=== PATIENT | male | born 1955 | race Caucasian/White ===

== ENCOUNTER → 2017-11-27 | Outpatient (CLI) | END | disposition home or self-care (01) ==

== ENCOUNTER → 2019-08-05 | Outpatient (CLI) | payer MEDICARE, OTHER ==
[~2019-08-05] MED LIST: ASPI81EC PO; BALSALAZIDE 750 MG PO; CITA20 PO; DIPATR PO; FAMO10 PO; FISH1000 PO; INSLI100I SC; INSN100I SC; LOVA20 PO; METO50 PO; STOMUL PO; VICODIN ES PO; WARF5 PO
[2019-08-05 15:00] LABS: Creatinine, Urine Random 43.9 mg/dL (27.00-270.00); Protein, Urine Random 16.6 mg/dL (0.0-11.9)
[2019-08-05 15:14] LABS: Bilirubin, Urine Neg (Neg); Blood, Urine 1+ (Neg); Glucose Qualitative, Urine 4+ (Neg); Ketones, Urine Neg (Neg); Leukocyte Esterase, Urine Neg (Neg); Nitrite, Urine Neg (Neg); Protein, Urine Neg (Neg); Urobilinogen, Urine NORM (Normal)
[2019-08-05 15:23] LABS: Appearance, Urine Clear (Clear); Color, Urine Yellow (P-Yellow)
[2019-08-05 15:26] LABS: Bacteria Not Seen /hpf; Red Blood Cells, Urine Rare /hpf (0-2); Squamous Epithelial Cells Rare /hpf (Few); White Blood Cells, Urine Not Seen /hpf (0-5)
== END | disposition home or self-care (01) ==
LOC: LAB SHORT 12:46 → LAB 12:46
PROVIDERS: Internal Medicine
DX: N17.9 Acute kidney failure, unspecified (principal)
CPT/HCPCS: 81001; 82570; 84156

== ENCOUNTER 2020-12-20 09:28 | Emergency (ER) | payer MEDICARE, OTHER ==
[~2020-12-20] VITALS: Ht 170.2 cm; Wt 129.3 kg
[~2020-12-20 09:28] MED LIST changes: -ASPI81EC PO; +Aspir 8181 MG PO; +FISH OIL 1,2001 EAC4 PO; -FISH1000 PO; -INSLI100I SC; +IRON18 MG PO; +NOVOLIN R100 UNIT/2 SC; -STOMUL PO
[2020-12-20 10:32] LABS: BASOPHILS ABSOLUTE AUTO 0.03 K/mm3 (0.00-0.23); BASOPHILS PERCENT AUTO 0 % (0-2); EOSINOPHILS ABSOLUTE AUTO 0.14 K/mm3 (0.00-0.68); EOSINOPHILS PERCENT AUTO 1 % (0-6); Hematocrit 30.7 % (37.0-53.0); Hemoglobin 9.9 g/dL (13.5-17.5); IMMATURE GRAN ABSOLUTE AUTO 0.04 K/mm3 (0.00-0.10); IMMATURE GRAN PERCENT AUTO 0 % (0-1); LYMPHOCYTES ABSOLUTE AUTO 1.47 K/mm3 (0.84-5.20); LYMPHOCYTES PERCENT AUTO 13 % (21-46); MONOCYTES ABSOLUTE AUTO 0.73 K/mm3 (0.16-1.47); MONOCYTES PERCENT AUTO 7 % (4-13); Mean Corpuscular HGB 32.4 pg (26.0-34.0); Mean Corpuscular HGB Conc 32.2 g/dL (31.5-36.5); Mean Corpuscular Volume 100 fL (80-100); Mean Platelet Volume 8.4 fL (9.1-12.4); NEUTROPHILS ABSOLUTE AUTO 8.56 K/mm3 (1.96-9.15); NEUTROPHILS PERCENT AUTO 78 % (41-73); Platelet Count 390 K/mm3 (150-400); RDW Coefficient Variation 12.7 % (11.7-14.2); RDW Standard Deviation 46.1 fL (35.1-46.3); Red Blood Cell Count 3.06 M/mm3 (4.30-5.90); White Blood Cell Count 10.97 K/mm3 (4.00-11.30)
[2020-12-20 10:41] LABS: Albumin, Blood 2.7 g/dL (3.4-5.0); Albumin/Globulin Ratio 0.5 (0.8-1.8); Bilirubin, Total 0.4 mg/dL (0.1-1.0); Bun/Creatinine Ratio 19.4 (12.0-20.0); Calcium, Blood 8.9 mg/dL (8.5-10.1); Creatinine, Blood 2.68 mg/dL (0.60-1.20); Globulin, Blood 5.2 g/dL (2.2-4.0); Potassium, Blood 4.6 mmol/L (3.5-5.5); Total Protein, Blood 7.9 g/dL (6.4-8.2)
== END 2020-12-20 15:42 | disposition home or self-care (01) ==
LOC: ER 09:28
PROVIDERS: Physician Assistant
DX: I87.8 Other specified disorders of veins (principal); L89.319 Pressure ulcer of right buttock, unspecified stage; M79.604 Pain in right leg; I10 Essential (primary) hypertension; Z88.8 Allergy status to other drugs, medicaments and biological substances; Z79.4 Long term (current) use of insulin; Z79.899 Other long term (current) drug therapy
CPT/HCPCS: 36415; 80053; 85025; 93971; 99284-25

== ENCOUNTER 2020-12-29 10:22 | Observation (INO) | payer MEDICARE, OTHER ==
[~2020-12-29] VITALS: Ht 170.2 cm; Wt 125.7 kg
[2020-12-29] MEDS ORDERED: NOVOLIN N100 UNIT/2 PO (12:48)
[2020-12-29] MEDS ORDERED: FURO20 PO (12:52)
[2020-12-29] MEDS ORDERED: WARF4 PO (12:54)
[2020-12-29] MEDS ORDERED: ZOCOR20 MG PO (12:55)
[2020-12-29] MEDS ORDERED: FENO145 PO (12:56)
[2020-12-29] MEDS ORDERED: TAMS.4ER PO (12:57)
[2020-12-29] MEDS ORDERED: Hair, Skin & N1 EACH PO (13:02)
[2020-12-29] MEDS ORDERED: VITAMIN D31000 UNI1 PO (13:02)
[2020-12-29] MEDS ORDERED: CO Q10100 MG PO (13:03)
[2020-12-29] MEDS ORDERED: POLY500 PO (13:04)
[2020-12-29] MEDS ORDERED: PROBIOTIC1 EA13 PO (13:04)
[2020-12-29] MEDS ORDERED: LORA10ER PO (13:05)
[2020-12-29] MEDS ORDERED: APAP500 MG PO (13:05)
[2020-12-29 15:04] LABS: BASOPHILS ABSOLUTE AUTO 0.04 K/mm3 (0.00-0.23); BASOPHILS PERCENT AUTO 0 % (0-2); EOSINOPHILS ABSOLUTE AUTO 0.16 K/mm3 (0.00-0.68); EOSINOPHILS PERCENT AUTO 1 % (0-6); Hematocrit 30.5 % (37.0-53.0); IMMATURE GRAN ABSOLUTE AUTO 0.05 K/mm3 (0.00-0.10); IMMATURE GRAN PERCENT AUTO 0 % (0-1); LYMPHOCYTES PERCENT AUTO 16 % (21-46); MONOCYTES ABSOLUTE AUTO 0.63 K/mm3 (0.16-1.47); MONOCYTES PERCENT AUTO 6 % (4-13); Mean Corpuscular HGB 31.8 pg (26.0-34.0); Mean Corpuscular HGB Conc 32.8 g/dL (31.5-36.5); Mean Corpuscular Volume 97 fL (80-100); Mean Platelet Volume 8.3 fL (9.1-12.4); NEUTROPHILS ABSOLUTE AUTO 8.82 K/mm3 (1.96-9.15); NEUTROPHILS PERCENT AUTO 77 % (41-73); Platelet Count 488 K/mm3 (150-400); RDW Coefficient Variation 12.8 % (11.7-14.2); RDW Standard Deviation 44.9 fL (35.1-46.3); Red Blood Cell Count 3.14 M/mm3 (4.30-5.90)
[2020-12-29 15:05] LABS: Prothrombin Time Results 70.8 Sec (9.7-11.5)
[2020-12-29 15:16] LABS: Albumin, Blood 2.9 g/dL (3.4-5.0); Albumin/Globulin Ratio 0.6 (0.8-1.8); Bilirubin, Total 0.3 mg/dL (0.1-1.0); Bun/Creatinine Ratio 17.9 (12.0-20.0); Calcium, Blood 8.7 mg/dL (8.5-10.1); Creatinine, Blood 2.23 mg/dL (0.60-1.20); Globulin, Blood 4.5 g/dL (2.2-4.0); Potassium, Blood 4.6 mmol/L (3.5-5.5); Total Protein, Blood 7.4 g/dL (6.4-8.2)
[2020-12-29 16:04] LABS: International Normalized Ratio 7.34
--- NOTE | 2020-12-29 18:06 | NUR ---
SHIFT SUMMARY PT WAS DIRECT ADMIT TO MEDICAL FLOOR BY [facility], ARRIVING AT APPROX 1100. PT AxOx4. PLEASANT AND COOPERATIVE WITH CARE. PT ADMISSION COMPLETED. SISTER, SAÚL IN ROOM AND UPDATED ON PLAN OF CARE. DR BETTY CORDOVA CONSULTED FOR SURGERY OF SACRAL/COCCYX WOUND. PER PATIENT, DR CORDOVA SAID HE WILL TAKE HIM FOR SURGICAL INTERVENTION TOMORROW 12/30/20, UNSURE WHAT TIME. VITALS REVIEWED. PICTURES TAKEN OF WOUND AND PLACED IN CHART. WOUND CARE PERFORMED AND LEFT OPEN TO AIR. IV ABX INFUSING. PT CURRENTLY RESTING IN BED WITH CALL LIGHT IN REACH. DENIES ANY NEEDS AT THIS TIME.
[2020-12-30 05:42] LABS: Prothrombin Time Results 59.7 Sec (9.7-11.5)
[2020-12-30 06:09] LABS: International Normalized Ratio 6.12
--- NOTE | 2020-12-30 06:24 | NUR ---
SUMMARY NO NEW ISSUES NOTED. PT TX FOR SCHAFFER W/ TYLENOL. PT SLEPT T/O SHIFT W/ CPAP. PT HAS BEEN NPO SINCE MIDNIGHT. PT SLEEPING IN NO DISTRESS. CALL LIGHT IN REACH AND BED ALARM ON.
--- NOTE | 2020-12-30 15:46 | NUR ---
Advance Directive (AD) education attempted. Patient expressed interest in filling out an AD but wanted to wait until his sister arrived. I came back at the time the patient asked for me to return and the sister had not arrived. I left the AD booklet with the patient and stated that I will make another attempt to see patient in the morning. I will continue to remain available.
[2020-12-30 15:56] LABS: International Normalized Ratio 5.4
--- NOTE | 2020-12-30 16:53 | NUR ---
SHIFT SUMMARY LAST INR WAS 5.[address] ARANA NEEDS INR TO BE AROUND [address] CAN TAKE PLACE OF HIS SARCAL WOUND. FOAM MEPILEX ADDED TO WOUND FOR COMFORT AND DRAINAGE. PT HAD BM TODAY. WOUND STARTED BLEEDING AFTER BM TODAY. PT STATES THIS HAS BEEN DOING ON FOR SOME TIME WITH BMS. PT UP TO WHEELCHAIR TODAY. PT DENIED NEED FOR PAIN MEDS TODAY, ALTHOUGH SAYS HER BOTTOM HURTS ALL THE TIME. PT REFUSED TO GET BACK IN BED FOR A WHILE THIS AFTERNOON, STATING HE WAS FINE IN HIS CHAIR. BP ELEVATED TODAY. THIS AFTERNOON IS WAS 195/81. DR. ELAINE NOTIFIED. HYDRALAZINE AND AMLODIPINE ADDED TO MED REGIMEN. PT UP IN ROOM VISITING WITH HIS SISTER. CALL LIGHT IN REACH. NO OTHER ACUTE CHANGES IN ASSESSMENT AT THIS CRUZ. OTHER VITALS STABLE.
[2020-12-31 05:23] LABS: BASOPHILS ABSOLUTE AUTO 0.04 K/mm3 (0.00-0.23); BASOPHILS PERCENT AUTO 0 % (0-2); EOSINOPHILS ABSOLUTE AUTO 0.29 K/mm3 (0.00-0.68); EOSINOPHILS PERCENT AUTO 3 % (0-6); Hematocrit 29.7 % (37.0-53.0); Hemoglobin 9.8 g/dL (13.5-17.5); IMMATURE GRAN ABSOLUTE AUTO 0.04 K/mm3 (0.00-0.10); IMMATURE GRAN PERCENT AUTO 0 % (0-1); LYMPHOCYTES ABSOLUTE AUTO 1.14 K/mm3 (0.84-5.20); LYMPHOCYTES PERCENT AUTO 11 % (21-46); MONOCYTES ABSOLUTE AUTO 0.68 K/mm3 (0.16-1.47); MONOCYTES PERCENT AUTO 7 % (4-13); Mean Corpuscular HGB 32.1 pg (26.0-34.0); Mean Corpuscular Volume 97 fL (80-100); NEUTROPHILS ABSOLUTE AUTO 7.91 K/mm3 (1.96-9.15); NEUTROPHILS PERCENT AUTO 78 % (41-73); Platelet Count 377 K/mm3 (150-400); RDW Coefficient Variation 12.8 % (11.7-14.2); RDW Standard Deviation 45.3 fL (35.1-46.3); Red Blood Cell Count 3.05 M/mm3 (4.30-5.90)
[2020-12-31 06:05] LABS: Bun/Creatinine Ratio 17.7 (12.0-20.0); Calcium, Blood 8.6 mg/dL (8.5-10.1); Creatinine, Blood 2.83 mg/dL (0.60-1.20); Potassium, Blood 4.5 mmol/L (3.5-5.5)
--- NOTE | 2020-12-31 06:42 | NUR ---
SUMMARY NO NEW ISSUES NOTED. PT SLEPT T/O SHIFT. CALL LIGHT IN REACH.
[2020-12-31 11:30] LABS: Vancomycin, Trough 21.1 ug/mL (5.0-10.0)
[2020-12-31 11:34] LABS: International Normalized Ratio 3.5; Prothrombin Time Results 35.2 Sec (9.7-11.5)
--- NOTE | 2020-12-31 11:56 | NUR ---
Spiritual care visit attempted. Patient is dismissive of having a visit today. Spiritual care will continue to remain available.
[2020-12-31] MEDS ORDERED: AMLO10 PO (12:11)
[2020-12-31] MEDS ORDERED: OXAYDO5 M4 PO (12:12)
[2020-12-31] MEDS ORDERED: AMOCLA875 PO (12:13)
[2020-12-31] MEDS ORDERED: CLON.1 PO (12:15)
--- NOTE | 2020-12-31 13:11 | NUR ---
CARE COORDINATION REFERRAL - ADMIT: 12/29/20 DISCHARGE: 12/31/20 DX: SACRAL DECUB ULCER CC: [facility] CALL: [phone] RESIDENCE: HOME BY HIMSELF CAREGIVER:MARINA CLANCY, FAMILY MEMBER, DX: SEVERE OBESE, CKD- STAGE 3, LOWER EXTREMITY EDEMA, NASRA, DM- TYPE 2, SEE LIST DME: DM SUPPLIES CCM: REFERRAL- 2016, 2018, 2019, 2020 HOME HEALTH: SUMMARY: 12/31/20- SPOKE WITH PT WHO REPORTS PRIOR TO COMING INTO THE HOSPITAL, HE WAS INDEPENDENT AT HOME. HE HAD NO CAREGIVERS BUT HAD A REFERRAL FOR [facility]. PT LIVES BY HIMSELF BUT HAS FAMILY THAT CALLS AND CHECKS ON HIM. HE LIVES IN AN APARTMENT WITH A RAMP TO THE DOOR. HE HAS WORKING UTILITIES. PT WAS DRIVING UNTIL HE GOT TOO WEAK TO GET HIMSELF INTO HIS VAN. HE HAS NOT BEEN ABLE TO REALLY GET OUT OF HIS HOME. HE HAS NO POA AND NEXT OF KIN IS HIS SISTER, SAÚL RICARDO [phone]. HE STATES THAT HE DOES NOT NEED ANY DME. HIS PHARMACY IS [facility] AND HE MANAGES HIS OWN MEDICATIONS. HE HAS A HOUSE KEEP THAT COMES AND CLEANS HIS HOME ONCE A WEEK. PT WILL BE D/C HOME TODAY. HE WILL NEED TO KEEP APPT WITH DR. CORDOVA ON 01/05/21 FOR BIOPSY OF WOUND ON HIS BACKSIDE. PT ACKNOWLEDGED UNDERSTANDING. PT NEED TO HAVE HIS INR MONITORED. TRANSPORTATION WAS SET UP FOR THE PT TO CLIENT EVALUATOR TODAY TO TAKE HOME AT 4PM. FLOOR NURSE AND DOCTOR NOTIFIED. -ZACK
--- NOTE | 2020-12-31 16:17 | NUR ---
DISCHARGE PT DISCHARGED AT 1600. PT & SISTER EDUCATED ON NEW MEDICATIONS & THIER SIDE EFFECTS. PT INSTRUCTED THAT HE WILL BE CONTACTED BY HIS PCP, DR. CORDOVA'S OFFICE, AND HOME HEALTH FOR FOLLOW UP. PT UNDERSTANDS THAT HE CANNOT TAKE HIS WARFARIN UNTIL AFTER HIS BIOPSY. PT & HIS SISTER DENY ANY FURTHER QUESTIONS AT THIS TIME. PT PICKED BY BY WHEELCHAIR [facility]- AND DRIVEN HOME. WOUND CARE SUPPLIES SENT WITH HIM FOR HOME HEALTH.
== END 2020-12-31 16:09 | disposition home health service (06) ==
LOC: MEDS 10:22 → ENPENDDIS 12-31 11:43 → MEDS 12-31 16:09
PROVIDERS: Internal Medicine; Pharmacist; Surgery; ADMIT Family Medicine
DX: L89.159 Pressure ulcer of sacral region, unspecified stage (principal); E11.22 Type 2 diabetes mellitus with diabetic chronic kidney disease; I12.9 Hypertensive chronic kidney disease with stage 1 through stage 4 chronic kidney disease, or unspecified chronic kidney disease; N18.30 Chronic kidney disease, stage 3 unspecified; D68.8 Other specified coagulation defects; E78.5 Hyperlipidemia, unspecified; Z79.4 Long term (current) use of insulin; Z89.512 Acquired absence of left leg below knee; Z79.01 Long term (current) use of anticoagulants; Z88.5 Allergy status to narcotic agent; Z86.718 Personal history of other venous thrombosis and embolism
CPT/HCPCS: 36415; 80048; 80053; 80202; 82565; 82947; 85025; 85610; 85730; 94660; 94762; 96365; 96366; 96375; 96376; A9270; G0378; J0360; J1815; J2543; J3370; J7040; J7050

== ENCOUNTER → 2021-01-04 | Outpatient (CLI) | payer MEDICARE, OTHER ==
[~2021-01-04] MED LIST changes: +AMLO10 PO; +AMOCLA875 PO; +APAP500 MG PO; +CLON.1 PO; +CO Q10100 MG PO; +FENO145 PO; +FURO20 PO; +Hair, Skin & N1 EACH PO; +LORA10ER PO; +NOVOLIN N100 UNIT/2 PO; +OXAYDO5 M4 PO; +POLY500 PO; +PROBIOTIC1 EA13 PO; +TAMS.4ER PO; +VITAMIN D31000 UNI1 PO; +WARF4 PO; +ZOCOR20 MG PO
[2021-01-04 12:34] LABS: International Normalized Ratio 1.15; Prothrombin Time Results 12.3 Sec (9.7-11.5)
== END | disposition home or self-care (01) ==
LOC: LAB HH 10:25 → LAB SHORT 10:25 → LAB 10:25
PROVIDERS: Family Medicine
DX: Z79.01 Long term (current) use of anticoagulants (principal); Z51.81 Encounter for therapeutic drug level monitoring
CPT/HCPCS: 85610

== ENCOUNTER 2021-01-05 12:45 | Day surgery (SDC) | payer MEDICARE, OTHER ==
[~2021-01-05] VITALS: Ht 170.2 cm; Wt 122.7 kg
--- NOTE | 2021-01-05 13:43 | NUR ---
PT TO DAY SURGERY, UNABLE TO TRANSFER TO SCALE, STATED WEIGHT FROM LAS WEEK IN HOSPITAL IS 270 LBS. PT HAS PROSTHETIC TO L LEG. UPON REMOVAL OF SOCK TO L FOOT OF PROSTHETIC, SEVERAL PIECES OF MATERIAL FELL OFF, PROSTHETIC IS IN POOR CONDITION. PT STATES HE IS AWARE. HOSPITAL SOCK APPLIED. REPORT TO RENETTA HA. UPDATED FOR NEED FOR ORDER FROM DR ART LANCASTER TO USE [employer] TRANSPORT RIDE HOME.
[2021-01-05] MEDS ORDERED: WARF4 PO (14:34)
--- NOTE | 2021-01-05 14:39 | NUR ---
History, Chart, Medications and Allergies reviewed before start of procedure.Patient confirms NPO status and agrees with scheduled surgery. Pre-Op teaching done. Pt verbalizes understanding. Patient States Post-Procedure ride home has been arranged.
--- NOTE | 2021-01-05 16:48 | NUR ---
RECIEVED PATIENT FROM OR 1 RECIEVED REPORTS FROM ANNESTHIOLOGIST AND RNS. PATIENT VSS. PATIENT AWAKE
--- NOTE | 2021-01-05 16:57 | NUR ---
01/05/21 1657 [facility],FARIHA CORDOVA ASKED IF HE WOULD LIKE PT TO HAVE PRE OP ANTIBIOTICS, SAID NO TO ANTIBIOTIC.
--- NOTE | 2021-01-05 17:47 | NUR ---
PATIENT DRESSED WITH ASSISTANCE FOR DISCHARGE HAS ALL BELONGINTGS AND DISCHzRGBE INSTRUCCTIONS. SENT HOME WITH [employer] DRESSING SUPPLIES. UNDERSTANDS ALL DISCHARGE INSTRUCTIONS. SPOKE WITH DR CORDOVA REGARDING DRESSING CHANGES AND NURSE COMEING OUT JUST TWO TIMES A WEEK STATES ITS OKAY.
== END 2021-01-05 17:55 | disposition home or self-care (01) ==
LOC: ORSCMMR 12:45 → ORD 14:30 → ORSCMMR 14:30
PROVIDERS: Surgery
PROC: 0JB70ZZ Excision of Back Subcutaneous Tissue and Fascia, Open Approach (ICD-10-PCS; principal; 2021-01-05 14:30)
DX: C44.529 Squamous cell carcinoma of skin of other part of trunk (principal); I10 Essential (primary) hypertension; G47.33 Obstructive sleep apnea (adult) (pediatric); N18.9 Chronic kidney disease, unspecified; E11.9 Type 2 diabetes mellitus without complications; Z79.4 Long term (current) use of insulin; Z79.01 Long term (current) use of anticoagulants; E66.01 Morbid (severe) obesity due to excess calories; Z68.41 Body mass index [BMI] 40.0-44.9, adult; Z79.899 Other long term (current) drug therapy
CPT/HCPCS: 82947; 88305; 93005; 93010; J1100; J2250; J2405; J2704; J7120

== ENCOUNTER → 2021-01-10 | Outpatient (CLI) | payer MEDICARE, OTHER ==
[2021-01-10 15:36] LABS: International Normalized Ratio 2.1; Prothrombin Time Results 21.7 Sec (9.7-11.5)
== END | disposition home or self-care (01) ==
LOC: LAB 12:00 → LAB SHORT 12:00
PROVIDERS: Family Medicine
DX: Z09 Encounter for follow-up examination after completed treatment for conditions other than malignant neoplasm (principal); Z86.718 Personal history of other venous thrombosis and embolism
CPT/HCPCS: 85610

== ENCOUNTER → 2021-01-17 | Outpatient (CLI) | payer MEDICARE, OTHER ==
[2021-01-17 13:28] LABS: International Normalized Ratio 3.59; Prothrombin Time Results 36.1 Sec (9.7-11.5)
== END | disposition home or self-care (01) ==
LOC: LAB 10:30 → LAB HH 10:30
PROVIDERS: Family Medicine
DX: Z79.01 Long term (current) use of anticoagulants (principal); Z51.81 Encounter for therapeutic drug level monitoring; Z86.718 Personal history of other venous thrombosis and embolism
CPT/HCPCS: 85610

== ENCOUNTER → 2021-01-24 | Outpatient (CLI) | payer MEDICARE, OTHER ==
[2021-01-24 18:14] LABS: Prothrombin Time Results 61.3 Sec (9.7-11.5)
[2021-01-24 18:27] LABS: International Normalized Ratio 6.3
== END | disposition home or self-care (01) ==
LOC: LAB SHORT 16:13 → LAB 16:13
PROVIDERS: Family Medicine
DX: Z79.01 Long term (current) use of anticoagulants (principal); Z51.81 Encounter for therapeutic drug level monitoring; Z86.718 Personal history of other venous thrombosis and embolism
CPT/HCPCS: 85610

== ENCOUNTER → 2021-01-31 | Outpatient (CLI) | payer MEDICARE, OTHER ==
[2021-01-31 15:40] LABS: International Normalized Ratio 3.41; Prothrombin Time Results 34.4 Sec (9.7-11.5)
== END ==
LOC: LAB HH 11:45 → LAB 11:45
PROVIDERS: Family Medicine
DX: Z79.01 Long term (current) use of anticoagulants (principal); Z51.81 Encounter for therapeutic drug level monitoring
CPT/HCPCS: 85610

== ENCOUNTER → 2021-02-09 | Outpatient (CLI) | payer MEDICARE, OTHER ==
[2021-02-09 14:15] LABS: International Normalized Ratio 3.48
== END | disposition home or self-care (01) ==
LOC: LAB 13:22 → LAB SHORT 13:22
PROVIDERS: Family Medicine
DX: Z79.01 Long term (current) use of anticoagulants (principal); Z51.81 Encounter for therapeutic drug level monitoring; Z86.718 Personal history of other venous thrombosis and embolism
CPT/HCPCS: 85610

== ENCOUNTER → 2021-02-16 | Outpatient (CLI) | payer MEDICARE, OTHER ==
[2021-02-16 15:26] LABS: International Normalized Ratio 2.66; Prothrombin Time Results 27.2 Sec (9.7-11.5)
== END | disposition home or self-care (01) ==
LOC: LAB HH 12:50 → LAB SHORT 12:50
PROVIDERS: Family Medicine
DX: Z79.01 Long term (current) use of anticoagulants (principal); Z51.81 Encounter for therapeutic drug level monitoring; Z86.718 Personal history of other venous thrombosis and embolism
CPT/HCPCS: 85610

== ENCOUNTER → 2021-03-03 | Outpatient (CLI) | payer MEDICARE, OTHER ==
[2021-03-03 14:06] LABS: Creatinine, Urine Random 76.3 mg/dL (27.00-270.00); Protein, Urine Random 126.3 mg/dL (0.0-11.9); Protein/Creat Ratio, Ur Random 1.7
== END | disposition home or self-care (01) ==
LOC: LAB HH 11:45 → LAB 11:45
PROVIDERS: Internal Medicine
DX: N18.32 Chronic kidney disease, stage 3b (principal)
CPT/HCPCS: 82570; 84156

== ENCOUNTER 2021-05-10 01:31 | Day surgery (SDC) | payer MEDICARE, OTHER | END 2021-05-10 22:46 | disposition home or self-care (01) | LOC: WOUND 01:31 | DX: L98.412 Non-pressure chronic ulcer of buttock with fat layer exposed (principal); N18.4 Chronic kidney disease, stage 4 (severe); E11.22 Type 2 diabetes mellitus with diabetic chronic kidney disease; E11.40 Type 2 diabetes mellitus with diabetic neuropathy, unspecified; D50.9 Iron deficiency anemia, unspecified; C44.529 Squamous cell carcinoma of skin of other part of trunk; E88.09 Other disorders of plasma-protein metabolism, not elsewhere classified; Z89.512 Acquired absence of left leg below knee; Z92.3 Personal history of irradiation | CPT/HCPCS: A9270; G0463 ==

== ENCOUNTER 2021-05-17 03:30 | Day surgery (SDC) | payer MEDICARE, OTHER | END 2021-05-17 23:40 | disposition home or self-care (01) | LOC: WOUND 03:30 | DX: L98.412 Non-pressure chronic ulcer of buttock with fat layer exposed (principal); C44.520 Squamous cell carcinoma of anal skin; N18.4 Chronic kidney disease, stage 4 (severe); D50.9 Iron deficiency anemia, unspecified; R77.0 Abnormality of albumin | CPT/HCPCS: A9270; G0463 ==

== ENCOUNTER 2021-05-31 03:04 | Day surgery (SDC) | payer MEDICARE, OTHER | END 2021-05-31 23:16 | disposition home or self-care (01) | LOC: WOUND 03:04 | DX: Z48.00 Encounter for change or removal of nonsurgical wound dressing (principal); C44.520 Squamous cell carcinoma of anal skin; N18.4 Chronic kidney disease, stage 4 (severe); D50.9 Iron deficiency anemia, unspecified; R77.0 Abnormality of albumin | CPT/HCPCS: A9270; G0463 ==

== ENCOUNTER 2021-06-21 04:20 | Day surgery (SDC) | payer MEDICARE, OTHER | END 2021-06-21 12:00 | disposition home or self-care (01) | LOC: WOUND 04:20 | DX: C44.520 Squamous cell carcinoma of anal skin (principal); N18.4 Chronic kidney disease, stage 4 (severe); R77.0 Abnormality of albumin; D50.9 Iron deficiency anemia, unspecified; Z48.00 Encounter for change or removal of nonsurgical wound dressing | CPT/HCPCS: A9270; G0463 ==

== ENCOUNTER 2021-07-26 04:05 | Day surgery (SDC) | payer MEDICARE, OTHER | END 2021-07-26 23:27 | disposition home or self-care (01) | LOC: WOUND 04:05 | DX: Z48.00 Encounter for change or removal of nonsurgical wound dressing (principal); C44.520 Squamous cell carcinoma of anal skin; N18.4 Chronic kidney disease, stage 4 (severe); R77.0 Abnormality of albumin; D50.9 Iron deficiency anemia, unspecified; R21 Rash and other nonspecific skin eruption | CPT/HCPCS: A9270; G0463 ==

== ENCOUNTER 2021-08-09 05:17 | Day surgery (SDC) | payer MEDICARE, OTHER | END 2021-08-09 22:56 | disposition home or self-care (01) | LOC: WOUND 05:17 | DX: C44.529 Squamous cell carcinoma of skin of other part of trunk (principal); C44.520 Squamous cell carcinoma of anal skin; S51.801A Unspecified open wound of right forearm, initial encounter; X58.XXXA Exposure to other specified factors, initial encounter; N18.4 Chronic kidney disease, stage 4 (severe); R77.0 Abnormality of albumin; D50.9 Iron deficiency anemia, unspecified | CPT/HCPCS: A9270; G0463 ==

== ENCOUNTER 2021-08-16 04:13 | Day surgery (SDC) | payer MEDICARE, OTHER | END 2021-08-16 22:48 | disposition home or self-care (01) | LOC: WOUND 04:13 | DX: L30.8 Other specified dermatitis (principal); C44.520 Squamous cell carcinoma of anal skin; N18.4 Chronic kidney disease, stage 4 (severe); R77.0 Abnormality of albumin; D50.9 Iron deficiency anemia, unspecified; Z48.00 Encounter for change or removal of nonsurgical wound dressing | CPT/HCPCS: 11105; A9270 ==

== ENCOUNTER 2021-08-23 04:01 | Day surgery (SDC) | payer MEDICARE, OTHER | END 2021-08-23 22:58 | disposition home or self-care (01) | LOC: WOUND 04:01 | DX: C44.529 Squamous cell carcinoma of skin of other part of trunk (principal); C44.520 Squamous cell carcinoma of anal skin; N18.4 Chronic kidney disease, stage 4 (severe); R77.0 Abnormality of albumin; D50.9 Iron deficiency anemia, unspecified; L40.9 Psoriasis, unspecified | CPT/HCPCS: G0463 ==

== ENCOUNTER → 2021-09-13 | Outpatient (CLI) | payer MEDICARE, OTHER ==
[~2021-09-13] MED LIST changes: +DOXYCYCLINE HY100 M1 PO; -FURO20 PO; +FURO40 PO; +JANTOVEN4 M2 PO; +LISI5 PO; +SODIUM BICARBO PO; +TRIDERM28.4 GM TOP
== END | disposition home or self-care (01) ==
LOC: LAB SHORT 14:00
DX: L03.115 Cellulitis of right lower limb (principal)
CPT/HCPCS: 87070; 87077; 87147; 87186; 87205

== ENCOUNTER 2021-10-03 01:22 | Day surgery (SDC) | payer MEDICARE, OTHER ==
[~2021-10-03 01:22] MED LIST changes: -DOXYCYCLINE HY100 M1 PO; +FURO20 PO; -FURO40 PO; -JANTOVEN4 M2 PO; -LISI5 PO; -SODIUM BICARBO PO; -TRIDERM28.4 GM TOP
== END 2021-10-03 11:59 | disposition home or self-care (01) ==
LOC: WOUND 01:22
DX: Z48.00 Encounter for change or removal of nonsurgical wound dressing (principal); C44.520 Squamous cell carcinoma of anal skin; N18.4 Chronic kidney disease, stage 4 (severe); R77.0 Abnormality of albumin; D50.9 Iron deficiency anemia, unspecified; R21 Rash and other nonspecific skin eruption; L40.9 Psoriasis, unspecified
CPT/HCPCS: A9270; G0463

== ENCOUNTER 2021-10-18 11:29 | Inpatient (IN) | payer MEDICARE, OTHER ==
[~2021-10-18] VITALS: Ht 170.2 cm; Wt 127.0 kg
[~2021-10-18 11:29] MED LIST changes: -FURO20 PO; +FURO40 PO
[2021-10-18 12:27] LABS: Hematocrit 25.7 % (37.0-53.0); Hemoglobin 8.4 g/dL (13.5-17.5); Mean Corpuscular HGB 32.9 pg (26.0-34.0); Mean Corpuscular HGB Conc 32.7 g/dL (31.5-36.5); Mean Corpuscular Volume 101 fL (80-100); Mean Platelet Volume 8.3 fL (9.1-12.4); Platelet Count 387 K/mm3 (150-400); RDW Coefficient Variation 13.2 % (11.7-14.2); RDW Standard Deviation 48.5 fL (35.1-46.3); Red Blood Cell Count 2.55 M/mm3 (4.30-5.90); White Blood Cell Count 24.34 K/mm3 (4.00-11.30)
[2021-10-18 12:49] LABS: Albumin, Blood 2.6 g/dL (3.4-5.0); Albumin/Globulin Ratio 0.5 (0.8-1.8); Bilirubin, Total 0.4 mg/dL (0.1-1.0); Bun/Creatinine Ratio 20.1 (12.0-20.0); Calcium, Blood 8.9 mg/dL (8.5-10.1); Creatinine, Blood 3.18 mg/dL (0.60-1.20); Globulin, Blood 4.9 g/dL (2.2-4.0); Total Protein, Blood 7.5 g/dL (6.4-8.2)
[2021-10-18 12:50] LABS: BAND PERCENT MAN 10 % (0-8); BASOPHILS PERCENT MAN 0 % (0-2); EOSINOPHILS PERCENT MAN 0 % (0-6); LYMPHOCYTES ABSOLUTE MAN 0.24 K/mm3 (0.84-5.20); LYMPHOCYTES PERCENT MAN 1 % (21-46); MONOCYTES ABSOLUTE MAN 2.19 K/mm3 (0.16-1.47); MONOCYTES PERCENT MAN 9 % (4-13); SEG NEUTROPHILS PERCENT MAN 80 % (41-73); TOTAL CELLS COUNTED 100
[2021-10-18 12:54] LABS: Prothrombin Time Results 81.5 Sec (9.7-11.5)
[2021-10-18 13:05] LABS: International Normalized Ratio 8.96
[2021-10-18 13:09] LABS: Creatine Kinase MB 7.3 ng/mL (0.0-3.6); Creatine Kinase MB Index 1.7 (0.0-4.0)
[2021-10-18 16:49] LABS: Influenza A, PCR NEGATIVE (NEGATIVE); Influenza B, PCR NEGATIVE (NEGATIVE); Resp Syncytial Virus, PCR NEGATIVE (NEGATIVE); SARS-Cov-2 (COVID-19) PCR, MMC NEGATIVE (NEGATIVE)
[2021-10-18] MEDS ORDERED: JANTOVEN4 M2 PO (21:39)
[2021-10-18] MEDS ORDERED: TRIDERM28.4 GM TOP (21:44)
[2021-10-18] MEDS ORDERED: SODIUM BICARBO PO (21:46)
[2021-10-18] MEDS ORDERED: LISI5 PO (21:47)
[2021-10-18] MEDS ORDERED: DOXYCYCLINE HY100 M1 PO (21:48)
--- NOTE | 2021-10-19 04:39 | NUR ---
SHIFT SUMMARY 66 YR M ADMITTED ON 10/18/21 FOR T11 VERTEBRE FX AFTER A GROUND LEVEL FALL AT HOME. FULL CODE. 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 HE APPEARS TO BE IN A GREAT DEAL OF PAIN FROM THE BACK FX AND IS BEING MEDICATED PER EMAR. UPON ARRIVAL TO THIS UNIT, THIS NURSE NOTICED A VERY LARGE AND VERY DEEP PRESSURE ULCER ON THE BILAT BUTTOCKS THAT EXTENDS TO THE RECTUM. THIS IS PAINFUL FOR THE PT WELL AND HE HAS A HARD TIME CHANGING POSITIONS WITHOUT CAUSING A GREAT DEAL OF PAIN. WOUND WAS CLEANED AND BANDAGED W/ DAMP GAUZE AND MEPILEX.
[2021-10-19 09:58] LABS: BASOPHILS ABSOLUTE AUTO 0.02 K/mm3 (0.00-0.23); BASOPHILS PERCENT AUTO 0 % (0-2); EOSINOPHILS ABSOLUTE AUTO 0.01 K/mm3 (0.00-0.68); EOSINOPHILS PERCENT AUTO 0 % (0-6); Hematocrit 19.6 % (37.0-53.0); Hemoglobin 6.6 g/dL (13.5-17.5); IMMATURE GRAN ABSOLUTE AUTO 0.09 K/mm3 (0.00-0.10); IMMATURE GRAN PERCENT AUTO 1 % (0-1); LYMPHOCYTES ABSOLUTE AUTO 0.63 K/mm3 (0.84-5.20); LYMPHOCYTES PERCENT AUTO 4 % (21-46); MONOCYTES PERCENT AUTO 6 % (4-13); Mean Corpuscular HGB 34.2 pg (26.0-34.0); Mean Corpuscular HGB Conc 33.7 g/dL (31.5-36.5); Mean Corpuscular Volume 102 fL (80-100); Mean Platelet Volume 8.5 fL (9.1-12.4); NEUTROPHILS ABSOLUTE AUTO 15.21 K/mm3 (1.96-9.15); NEUTROPHILS PERCENT AUTO 90 % (41-73); Platelet Count 286 K/mm3 (150-400); RDW Coefficient Variation 13.2 % (11.7-14.2); RDW Standard Deviation 48.7 fL (35.1-46.3); Red Blood Cell Count 1.93 M/mm3 (4.30-5.90); White Blood Cell Count 16.96 K/mm3 (4.00-11.30)
[2021-10-19 10:13] LABS: Albumin, Blood 2.3 g/dL (3.4-5.0); Albumin/Globulin Ratio 0.5 (0.8-1.8); Bilirubin, Total 0.6 mg/dL (0.1-1.0); Bun/Creatinine Ratio 19.4 (12.0-20.0); Calcium, Blood 8.5 mg/dL (8.5-10.1); Creatinine, Blood 3.3 mg/dL (0.60-1.20); Globulin, Blood 4.5 g/dL (2.2-4.0); Potassium, Blood 4.9 mmol/L (3.5-5.5); Total Protein, Blood 6.8 g/dL (6.4-8.2)
[2021-10-19 10:14] LABS: International Normalized Ratio 1.22; Prothrombin Time Results 12.6 Sec (9.7-11.5)
[2021-10-19 21:23] LABS: Hematocrit 21.2 % (37.0-53.0); Hemoglobin 6.9 g/dL (13.5-17.5)
--- NOTE | 2021-10-19 23:49 | NUR ---
HOSPITALIST DR MILLER ORDER H&H LAB: 6.[address] DR MILLER ORDERED ONE UNIT PRBC.
--- NOTE | 2021-10-20 03:30 | NUR ---
FINISHED ONE UNIT PRBC. TOLERATED WELL. WCTM
--- NOTE | 2021-10-20 03:39 | NUR ---
PT GAVE CONSENT TO GIVE CARE ON 10/19/21.
[2021-10-20 04:52] LABS: Hematocrit 23.6 % (37.0-53.0); Hemoglobin 7.6 g/dL (13.5-17.5); Mean Corpuscular HGB 32.5 pg (26.0-34.0); Mean Corpuscular HGB Conc 32.2 g/dL (31.5-36.5); Mean Corpuscular Volume 101 fL (80-100); Mean Platelet Volume 8.7 fL (9.1-12.4); Platelet Count 341 K/mm3 (150-400); RDW Coefficient Variation 14.5 % (11.7-14.2); RDW Standard Deviation 53.1 fL (35.1-46.3); Red Blood Cell Count 2.34 M/mm3 (4.30-5.90); White Blood Cell Count 17.73 K/mm3 (4.00-11.30)
--- NOTE | 2021-10-20 05:02 | NUR ---
PT A&O x 4. PT LABS OF HGB 6.9, HCT 21.2 REQUIRED PROVIDER ORDER FOR 1 UNIT PRBCs GIVEN VIA TRANSFUSION. CURRENTLY AWAITING AM LAB RESULTS. PT WAS BLADDER SCANNED AT 0300 AND HAD 816ML URINE RETENTION. STRAIGHT CATH ORDER OBTAINED FROM HOSPITALIST AND 1375ML URINE OUTPUT RECORDED. PT O2 CONSISTENT 89%-91% ON 5L/NC. PT KEPT TAKING OFF OXYGEN AND PUTTING IN MOUTH. PT ALSO REFUSED REPOSITIONING ENTIRE SHIFT. PT IS CURRENTLY SLEEPING WITH CALL LIGHT WITHIN REACH.
[2021-10-20 15:41] LABS: Bun/Creatinine Ratio 18.9 (12.0-20.0); Calcium, Blood 8.4 mg/dL (8.5-10.1); Creatinine, Blood 3.76 mg/dL (0.60-1.20); Potassium, Blood 4.7 mmol/L (3.5-5.5)
--- NOTE | 2021-10-20 18:06 | NUR ---
SHIFT SUMMARY PT RESTING QUIETLY DURING SHIFT REPORT. PT HAVING SEVERE PAIN WHEN AWAKE. DOES NOT WANT TO MOVE AT ALL. WAS ABLE TO REPOSITION A FEW TIMES DURING THE DAY WITH MEDICATING WELL PRIOR TO DOING SO. PT NOT EATING OR DRINKING MUCH AT ALL. PT ENCOURAGED ALL DAY LONG WITH PO FLUIDS, BUT WILL NOT SIT UP TO EAT OR DRINK. PT IS ABLE TO SIP ON WATER WHEN LYING TO R SIDE, BUT DOESN'T DO WELL WITH EATING. ENSURE'S ENCOURAGED, BUT DOESN'T LIKE THEM ALL THAT WELL. DR GRAHAM IN TO SEE PT. FLUTTER VALVE ORDERED; RT NOTIFIED AND SET IT UP. PT ENCOURAGED TO USE IT OFF AND ON TODAY. PT IS DIFFICULT TO MOTIVATE TO DO WHAT IS NEEDED. PT HAS BEEN MEDICATED THRU OUT THE DAY, PER EMAR, AND ABLE TO REST A LITTLE BETTER. IMAGING HERE TO TAKE PT DOWN FOR CXR'S, BUT PT UNABLE TO TX TO [facility] OR TO SIT UP FOR XR. DR GRAHAM NOTIFIED AND 1V PORTABLE DONE IN . PT BLADDER SCANNED A COUPLE OF TIMES TODAY, SHOWING 124cc. IVF'S STARTED THIS AFTERNOON. PT RECEIVING IV ABX PER EMAR. PT WAITING TO TX TO [facility] WHEN BED AVAILABLE. DENIES FURTHER NEEDS AT THIS TIME. CALL LT IN REACH.
--- NOTE | 2021-10-20 18:34 | NUR ---
STUDENT RN COMPLETED WOUND CARE TO BL TOES, PER ORDERS.
--- NOTE | 2021-10-20 22:56 | NUR ---
HOSPITALIST DR MILLER ORDERED IV ATIVAN 0.5-1 MG FOR ANXIETY. PATIENT ANXIOUS PULLING OFF REBREATHER MASK ON 9 L O2.
[2021-10-21 02:48] LABS: Source, Urine Clean Catch
[2021-10-21 02:52] LABS: Bilirubin, Urine Neg (Neg); Blood, Urine 5+ (Neg); Glucose Qualitative, Urine 1+ (Neg); Ketones, Urine Neg (Neg); Leukocyte Esterase, Urine Neg (Neg); Nitrite, Urine Neg (Neg); Protein, Urine 3+ (Neg); Specific Gravity, Urine 1.015 (1.003-1.022); Urobilinogen, Urine NORM (Normal)
[2021-10-21 02:59] LABS: Color, Urine Yellow (P-Yellow)
[2021-10-21 03:00] LABS: Appearance, Urine Clear (Clear)
[2021-10-21 03:02] LABS: Bacteria Rare /hpf; Squamous Epithelial Cells Few /hpf (Few); White Blood Cells, Urine 0-2 /hpf (0-5)
--- NOTE | 2021-10-21 04:12 | NUR ---
PT A&O X 4. VS STABLE. PT REFUSED TO MOVE FOR REPOSITIONING AND KEPT TAKING REBREATHER MASK OFF. PT WAS VERBALLY ABUSIVE OF STAFF STATING THAT STAFF WANTED TO INJURE PT. ORDER FOR ATIVAN 0.5-1 MG OBTAINED FROM HOSPITALIST FOR INCREASED AGITATION. PT WAS BLADDER SCANNED AROUND 0000 AND SCAN REVEALED URINE RETENTION OF 1074ML. ORDER FOR IVEY CATHETHER OBTAINED AND PT WAS GIVEN ROXICODONE AND ATIVAN PRIOR TO URO JET AND IVEY INSERTION WHICH WAS PLACED AT 0245. IVEY INSERTION OUTPUT WAS 1275ML WITH URINE SPECIMEN SENT TO LAB FOR ANAYLYSIS PER PROTOCOL. PT IS CURRENTLY SLEEPING WITH CALL LIGHT WITHIN REACH.
[2021-10-21 04:56] LABS: BASOPHILS ABSOLUTE AUTO 0.04 K/mm3 (0.00-0.23); BASOPHILS PERCENT AUTO 0 % (0-2); EOSINOPHILS ABSOLUTE AUTO 0.19 K/mm3 (0.00-0.68); EOSINOPHILS PERCENT AUTO 1 % (0-6); Hemoglobin 7.7 g/dL (13.5-17.5); IMMATURE GRAN ABSOLUTE AUTO 0.15 K/mm3 (0.00-0.10); IMMATURE GRAN PERCENT AUTO 1 % (0-1); LYMPHOCYTES PERCENT AUTO 4 % (21-46); MONOCYTES ABSOLUTE AUTO 1.24 K/mm3 (0.16-1.47); MONOCYTES PERCENT AUTO 6 % (4-13); Mean Corpuscular HGB 32.8 pg (26.0-34.0); Mean Corpuscular HGB Conc 32.1 g/dL (31.5-36.5); Mean Corpuscular Volume 102 fL (80-100); Mean Platelet Volume 8.4 fL (9.1-12.4); NEUTROPHILS ABSOLUTE AUTO 17.01 K/mm3 (1.96-9.15); NEUTROPHILS PERCENT AUTO 88 % (41-73); Platelet Count 373 K/mm3 (150-400); RDW Coefficient Variation 13.9 % (11.7-14.2); Red Blood Cell Count 2.35 M/mm3 (4.30-5.90); White Blood Cell Count 19.33 K/mm3 (4.00-11.30)
--- NOTE | 2021-10-21 06:09 | NUR ---
I AM IN AGREEMENT WITH THE STUDENT NOTES AND DOCUMENTATION OF THE LAST TWO NOC SHIFTS.
--- NOTE | 2021-10-21 09:49 | NUR ---
WHEN ASSESSING PT FOR OXYGEN SATURATION PT FOUND TO BE ON FiO2 @ 8LPM VIA NONREBREATHER MASK, SpO2 96%. PT IS MOUTH BREATHING AND DOES NOT CHANGE WHEN ASKED TO BREATH THROUGH HIS NOSE. I CHANGED PT TO A VENTURI MASK AT 45% FiO2 WITH 10 LPM FLOW FOR SpO2 93%
--- NOTE | 2021-10-21 13:15 | NUR ---
Received call from practice business asstRENETTA Baron and discussed case. Pt may benefit from PC visit to discuss code status, symptom management, and advanced care planning. Spoke with Primary RENETTA Sam and discussed case. Pt unable to sit up to eat due to pain. Currently no diet ordered until ST can evaluate. Awaiting orders for wound care. Pt resting in bed with his eyes closed upon arrival. Pt awakes to gentl verbal stimuli. Pt reports 8/10 pain in his back. He reports tolerable level of pain is 5/10. Pt reports mild to moderate anxiety due to all his current health issues including anticipation for surgery. Pt reports living alone and has a sister who lives in [place] and a sister living in [place] but is disabled. No current caregiver support in place. Continued therapeutic listening. Attempted to engage in conversation regarding wishes for CPR and Pt closes his eyes appearing to sleep. Pt does not continue to participate in conversation. Ended visit to allow Pt to rest. Will discuss case with Dr Montemyaor.
[2021-10-21 15:30] LABS: Bun/Creatinine Ratio 20.6 (12.0-20.0); Calcium, Blood 8.5 mg/dL (8.5-10.1); Creatinine, Blood 3.55 mg/dL (0.60-1.20); Potassium, Blood 4.7 mmol/L (3.5-5.5)
--- NOTE | 2021-10-21 16:16 | NUR ---
SHIFT SUMMARY PT RESTING QUIETLY AT START OF SHIFT. PER NOC SHIFT REPORT, PT PLACED ON 8L VIA NONREBREATHER. PT WAS NONCOMPLIANT WITH NRB, TAKING OFF AND PUTTING UP ON FOREHEAD; REPLACED TO FACE MULTIPLE TIMES, BUT ONLY FOR SHORT MOMENTS. PT DID BETTER DURING THE DAY WITH 5L VIA NC. PT ALSO INCONTINENT OF BOWELS THIS AM AT BREAKFAST. PT MEDICATED PER EMAR PRIOR TO TURNING AND CLEANING. DRESSING TO COCCYX WOUND REMOVED D/T SOILING. COCCYX AREA CLEANED WELL AND PATTED DRY WITH 4X4'S. CA ALGINATE PACKED INTO WOUND, COVERED WITH 4X4'S AND COCCYX MEPILEX. PT ABLE TO TOLERATE CAREFUL REPOSITIONING WITH CARE AND MEDICATION. PT HAS DONE BETTER TODAY THAN YESTERDAY. DR MIKE IN TO SEE PT THIS AM. NEW ORDERS PLACED. SP TX HERE TO EVAL PT HE WILL NOT TOLERATE SITTING UPRIGHT TO EAT OR DRINK. NEW DIET ORDERS PLACED. PALLIATIVE CARE ALSO HERE TODAY TO TALK WITH PT; ALSO ATTEMPT TO DISCUSS CODE STATUS, BUT PT NOT INTERESTED AT THIS TIME. CT ORDERED AND TX ORDERS PLACED; PT TO TX TO PCU [address] COMPLETE. ALL PT'S BELONGINGS TAKEN DOWN TO PCU [address] SCAN. NEPHROLOGY CONSULT ORDERED; DR GUADARRAMA NOTIFIED OF CONSULT AND PT'S TX TO PCU. REPORT CALLED TO IBRAHIMA JACKSON PRIOR TO PT BEING TAKEN TO CT.
--- NOTE | 2021-10-21 17:27 | NUR ---
PT WAS SLEEPING MOST OF THE SHIFT. PT WAS STATING LOW AND WAS PUT ON 8L VIA NONREBREATHER. PT WAS NONCOMPLIANT WITH NONREBREATHER, PLACING THE MASK ON HIS FOREHEAD, NONREBREATHER WAS REPLACED ON PT SEVERAL TIMES. PT WAS PUT ON NC AT 5L AND TOLERATED THROUGHOUT SHIFT. PT HAD A LARGE BOWEL MOVEMENT AT THE BEGINNING OF SHIFT. PT WAS MEDICATED PER EMAR, BEFORE ATTENDS WAS CHANGED. PT HAD WOUND DRESSING CHANGE WITH CALCIUM ALGNATE PACKING, 4X4 YAKELIN AND MEPLEX DRESSING TO THE COCCYXS. PT WAS EVALUATED BY SPEECH THERAPY FOR A SWALLOW EVALUATION DUE TO THE PT NOT BEING ABLE TO SIT UP AND EAT MEALS. PT HAS BEEN REFUSING MEALS AND ONLY DRINKING ENSURE AND WATER THROUGHOUT SHIFT. PT WAS PUT ON CLEAR LIQUID DIET. PT WAS TRANSFERRED TO PCU 13 DUE TO HIGH RISK INFECTION AND ASPIRATION.
--- NOTE | 2021-10-21 18:15 | NUR ---
PT ARRIVED TO UNIT THIS EVENING FROM MEDICAL FLOOR POST CHEST CT. PT DROWSY FROM DILAUDID, STS PAIN IS TOLERABLE. VSS, SPO2 >92% ON 6L O2 ON ARRIVAL. PT LYING FLAT UPON ARRIVAL, REFUSES ANY TURNS. PT LAYING ON LEFT SIDE FOR GREATEST COMFORT. REPORTS GOOD SENSATION TO REMAINING LEG (RT), INTACT ROM OF LEG. LT LEG BKA. AWAITING RESULTS FROM CHEST CT. PT WAITING FOR BED PLACEMENT AT [facility] FOR TRANSFER. WILL CONTINUE TO MONITOR FOR CHANGES
--- NOTE | 2021-10-21 21:46 | NUR ---
ASSUMED CARE OF PATIENT AT APPROXIMATELY 1905 FROM IBRAHIMA Petersen RN AND THEODORE SANTAMARIA. PATIENT ALERT AND ORIENTED; PATIENT OCCASIONALLY PULLS ON WIRES AND STATES THEY ARE IN THE WAY. PATIENT ONLY LAYS ON LEFT SIDE AND REFUSING TO BE REPOSISTION; YELLS OUT WHEN MOVING BED AT TIMES. NSR ON TELE; OXYGEN SATURATION ABOVE 90% ON 7LPM VIA NC OR CPAP WHILE SLEEPING. IVF INFUSING PER ORDER. PATIENT DENIES PAIN, DIZZINESS, AND NAUSEA. LIBRARY CIRCULATION ASSISTANT LIV Gonzalez ASSISTING WITH CARE.
--- NOTE | 2021-10-22 02:21 | NUR ---
PT IS ALERT AND ORIENTED TO SELF, SURROUNDINGS, AND SITUATION. CURRENTLY LYING ON LEFT SIDE AND UNWILLING TO REPOSITION DUE TO PAIN FROM GLUTEAL AND HEEL ULCER, AND T11 INJURY. HE HAS BEEN SLIGHTLY REPOSITIONING HIMSELF. PT WOULD INITIALLY GET ANXIOUS AND START PULLING AT TELE WIRES AND PULSE OX, BUT WAS ABLE TO STOP BY HELPING UNTANGLE WIRES AND PROVIDING ICE WATER (HE SEEMED VERY APPRECIATIVE OF CARE AND BECAME MUCH MORE COOPERATIVE). ABDOMINAL DISTENTION NOTED AND PT STATED "IT'S SOMETIMES LIKE THIS". PREVIOUS NURSE WAS AWARE OF DISTENTION.
--- NOTE | 2021-10-22 03:45 | NUR ---
PATIENT HAD REMOVED TELE LEADS AND THE TELE WAS FOUND ON THE FLOOR, PATIENT ALSO REMOVED OXYGEN SATURATION PROBE, PULLED OUT IV, AND REMOVED BLANKETS. PATIENT CONFUSED AND STATED "I DONT KNOW IF MY WORKS" AND WHILE TRYING TO START ANTOHER IV STATED THAT HE HAS CANCER AND THAT WE MIGHT WELL KILL HIM. PATIENT REQUESTED FOOD; JELLO GIVEN AND PATIENT DRANK WATER THROUGHOUT THE NIGHT. PATIENT SLEPT ABOUT FOUR HOURS WITH CPAP. PATIENT ANXIOUS AT TIMES REGARDING LINES AND TUBES BEING TANGLED.
[2021-10-22 04:28] LABS: BASOPHILS ABSOLUTE AUTO 0.04 K/mm3 (0.00-0.23); BASOPHILS PERCENT AUTO 0 % (0-2); EOSINOPHILS ABSOLUTE AUTO 0.45 K/mm3 (0.00-0.68); EOSINOPHILS PERCENT AUTO 3 % (0-6); Hematocrit 22.2 % (37.0-53.0); Hemoglobin 7.3 g/dL (13.5-17.5); IMMATURE GRAN ABSOLUTE AUTO 0.08 K/mm3 (0.00-0.10); IMMATURE GRAN PERCENT AUTO 1 % (0-1); LYMPHOCYTES ABSOLUTE AUTO 0.58 K/mm3 (0.84-5.20); LYMPHOCYTES PERCENT AUTO 4 % (21-46); MONOCYTES PERCENT AUTO 6 % (4-13); Mean Corpuscular HGB 32.9 pg (26.0-34.0); Mean Corpuscular HGB Conc 32.9 g/dL (31.5-36.5); Mean Corpuscular Volume 100 fL (80-100); Mean Platelet Volume 8.2 fL (9.1-12.4); NEUTROPHILS ABSOLUTE AUTO 12.66 K/mm3 (1.96-9.15); NEUTROPHILS PERCENT AUTO 87 % (41-73); Platelet Count 325 K/mm3 (150-400); RDW Coefficient Variation 13.4 % (11.7-14.2); RDW Standard Deviation 48.9 fL (35.1-46.3); Red Blood Cell Count 2.22 M/mm3 (4.30-5.90); White Blood Cell Count 14.61 K/mm3 (4.00-11.30)
[2021-10-22 04:49] LABS: Albumin, Blood 1.8 g/dL (3.4-5.0); Anion Gap 9 mmol/L (6-16); Blood Urea Nitrogen 68 mg/dL (8-24); Bun/Creatinine Ratio 20.1 (12.0-20.0); CO2, Blood 21 mmol/L (21-32); Calcium, Blood 8.2 mg/dL (8.5-10.1); Chloride, Blood 112 mmol/L (98-108); Creatinine, Blood 3.39 mg/dL (0.60-1.20); Glomerular Filtration Rate 18 (60-); Glucose, Blood 132 mg/dL (70-99); Magnesium, Blood 2.4 mg/dL (1.6-2.4); Phosphorus, Blood 4.5 mg/dL (2.5-4.9); Potassium, Blood 4.2 mmol/L (3.5-5.5); Sodium, Blood 142 mmol/L (136-145); Vancomycin, Random 21.1 ug/mL
--- NOTE | 2021-10-22 06:39 | NUR ---
PATIENT PULLED IV, TELE, AND O2 SAT PROBE OFF AGAIN. PATIENT CONFUSED.
[2021-10-22 08:39] LABS: Albumin, Blood 1.8 g/dL (3.4-5.0); Albumin/Globulin Ratio 0.4 (0.8-1.8); Bilirubin, Direct 0.3 mg/dL (0.0-0.3); Bilirubin, Indirect 0.2 mg/dL (0.1-0.7); Bilirubin, Total 0.5 mg/dL (0.1-1.0); Globulin, Blood 4.8 g/dL (2.2-4.0); Total Protein, Blood 6.6 g/dL (6.4-8.2); Uric Acid, Blood 9.2 mg/dL (3.5-7.2)
--- NOTE | 2021-10-22 10:05 | NUR ---
Supportive visit this AM. Pt resting in bed and on CPAP. Reviewed plan of care with Pt reporting no concerns at this time. Spoke with Primary RN Liz and discussed case. Palliative Care will remain available.
--- NOTE | 2021-10-22 10:35 | NUR ---
AM NOTE: PATIENT ALERT TO SELF, , AND EVENT. INTERMITENT CONFUSION WITH PLACE AND DAY/TIME. PERRLA. NUMBNESS/TINGLING TO RIGHT LEG. PATIENT ABLE TO MOVE ALL EXTREMITIES. PAIN WHEN MOVING TO RIGHT LEG AND BACK. L BKA. SIDE LYING. REFUSING TO TURN IN BED OR HELP WITH CARES. ON 6-7L NASAL CANNULA SATING LOW 90'S. WEARING CPAP WHEN SLEEPING WITH 7L BLEED IN. OCCASIONAL COUGH. TELE SHOWING NSR WITH HR 70-80'S. DENIES CHEST PAIN/PRESSURE. VITAL SIGNS STABLE. DENIES ABDOMINAL PAIN/NAUSEA. SEVERE DISTENTION, PATIENT STATES NORMAL. SMALL LIQUID BM THIS AM. LEFT BKA. RIGHT LEG VERY SCALY AND DRY WITH SOME REDNESS, PATIENT STATES "ITS BROKEN, DON'T MOVE OR TOUCH IT". RIGHT HEEL PRESSURE ULCER. DRESSING CHANGED AND OFF LOADING IN BED WITH PILLOWS. VERY LARGE/DEEP SACRAL/COCCYX PRESSURE WOUND. CLEANED AND CULTURED THIS AM. CALCIUM ALGINATE WITH MEPILEX IN PLACE. CULTURE SENT TO LAB. ACHS BLOOD SUGARS. REFUSING TO TURN AND MOVE AROUND IN BED. REFUSING TO SIT UP SLIGHTLY TO DRINK WATER. BEDREST AT THIS TIME. REFUSING SCD'S DESPITE THIS RN'S EDUCATION. DR. GUADARRAMA IN THIS AM, NEW LABS ORDERED. CALL PLACED TO UPDATE ON LABS, NEW ORDERS TO CHANGE FLUIDS TO 1/2 NS WITH 75 MEQ SODIUM BICARB, INFUSING AT THIS TIME. MEDICATED FOR PAIN PER EMAR. SLEEPING AT THIS TIME WITH CPAP IN PLACE. PALLIATIVE CARE IN TO PROVIDE SUPPORTIVE CARE. WILL CONTINUE TO MONITOR.
--- NOTE | 2021-10-22 12:41 | NUR ---
SPOKE WITH PHARMACY REGARDING IV COMP OF ZOSYN AND CURRENT FLUIDS. OKAY TO RUN TOGETHER. ZOSYN INFUSING AT THIS TIME.
[2021-10-22 15:25] LABS: Anion Gap 9 mmol/L (6-16); Blood Urea Nitrogen 67 mg/dL (8-24); Bun/Creatinine Ratio 20.8 (12.0-20.0); CO2, Blood 21 mmol/L (21-32); Calcium, Blood 7.9 mg/dL (8.5-10.1); Chloride, Blood 113 mmol/L (98-108); Creatinine, Blood 3.22 mg/dL (0.60-1.20); Glomerular Filtration Rate 20 (60-); Glucose, Blood 136 mg/dL (70-99); Potassium, Blood 4.1 mmol/L (3.5-5.5); Sodium, Blood 143 mmol/L (136-145); Vancomycin, Random 16.9 ug/mL
--- NOTE | 2021-10-22 17:48 | NUR ---
SHIFT SUMMARY: NO ACUTE CHANGES. NEURO, RESPIRATORY, AND CARDIAC STATUS REMAIN UNCHANGED. TELE CONTINUES TO SHOW NSR WITH HR 70-80'S. VITAL SIGNS STABLE. DENIES ABDOMINAL PAIN/NAUSEA. TOLERATING CLEASR LIQUID DIET. PATIENT SITTING UP TO EAT DINNER AT THIS TIME. SCD IN PLACE ON RIGHT LEG. PATIENT MOOD IMPROVED AND WILLING TO HELP WITH CARES WITH SISTER SAÚL IN ROOM. SAÚL IS OLDER SISTER THAT LIVES IN [place] [phone]. SANG WAS ABLE TO SPEAK WITH DR. DE LA ROSA VIA TELEPHONE FOR UPDATE. SAÚL ALSO WANTED TO LET CARE TEAM KNOWN PATIENT WAS SCHEDULED FOR SURGERY THOUGH [facility] ON October RELATED TO CANCER. PATIENT SEES DR. CRISOSTOMO FOR ONCOLOGY AND DR[facility] ORDONEZ [facility] WOUND DRESSING REMAIN C/D/I FROM THIS AM DRESSING CHANGE. ANTIBIOTICS INFUSED. IVEY CATH REMAINS IN PLACE. DENIES NEEDS/PAIN AT THIS TIME. WILL CONTINUE TO MONITOR AND REPORT OFF.
--- NOTE | 2021-10-22 21:34 | NUR ---
ASSUMED CARE OF PATIENT AT APPROXIMATELY 1905 FROM MARII Brewster RN. PATIENT ALERT AND ORIENTED; CONFUSED AT TIMES. PATIENT OCCASIONALLY PULLS ON WIRES AND STATES THEY ARE IN THE WAY. PATIENT ONLY LAYS ON LEFT SIDE AND REFUSING TO BE REPOSISTION; YELLS OUT WHEN MOVING BED AT TIMES. NSR ON TELE; OXYGEN SATURATION ABOVE 90% ON 7LPM VIA NC OR CPAP WHILE SLEEPING. IVF INFUSING PER ORDER. PATIENT DENIES PAIN, DIZZINESS, AND NAUSEA. SALES TEAM LEADER LIV Gonzalez ASSISTING WITH CARE.
--- NOTE | 2021-10-23 02:31 | NUR ---
PT HAS BEEN SLEEPING WELL. PT IS INTERMITTENTLY CONFUSED AND IRRITABLE WHEN ATTEMPTING TO REPOSITION DUE TO PAIN. PT PULLED OFF THE PULSE OX ONCE TONIGHT, BUT HAS BEEN MOSTLY COOPERATIVE AND IS SLEEPING WELL.
[2021-10-23 05:15] LABS: BASOPHILS ABSOLUTE AUTO 0.03 K/mm3 (0.00-0.23); BASOPHILS PERCENT AUTO 0 % (0-2); EOSINOPHILS ABSOLUTE AUTO 0.53 K/mm3 (0.00-0.68); EOSINOPHILS PERCENT AUTO 4 % (0-6); Hematocrit 22.5 % (37.0-53.0); Hemoglobin 7.4 g/dL (13.5-17.5); IMMATURE GRAN ABSOLUTE AUTO 0.09 K/mm3 (0.00-0.10); IMMATURE GRAN PERCENT AUTO 1 % (0-1); LYMPHOCYTES ABSOLUTE AUTO 0.63 K/mm3 (0.84-5.20); LYMPHOCYTES PERCENT AUTO 5 % (21-46); MONOCYTES ABSOLUTE AUTO 0.97 K/mm3 (0.16-1.47); MONOCYTES PERCENT AUTO 7 % (4-13); Mean Corpuscular HGB 33.2 pg (26.0-34.0); Mean Corpuscular HGB Conc 32.9 g/dL (31.5-36.5); Mean Corpuscular Volume 101 fL (80-100); Mean Platelet Volume 8.5 fL (9.1-12.4); NEUTROPHILS ABSOLUTE AUTO 11.03 K/mm3 (1.96-9.15); NEUTROPHILS PERCENT AUTO 83 % (41-73); Platelet Count 354 K/mm3 (150-400); RDW Coefficient Variation 13.4 % (11.7-14.2); RDW Standard Deviation 49.3 fL (35.1-46.3); Red Blood Cell Count 2.23 M/mm3 (4.30-5.90); White Blood Cell Count 13.28 K/mm3 (4.00-11.30)
[2021-10-23 06:01] LABS: Albumin, Blood 1.7 g/dL (3.4-5.0); Albumin/Globulin Ratio 0.4 (0.8-1.8); Bilirubin, Total 0.5 mg/dL (0.1-1.0); Bun/Creatinine Ratio 21.9 (12.0-20.0); Calcium, Blood 8.4 mg/dL (8.5-10.1); Creatinine, Blood 3.02 mg/dL (0.60-1.20); Globulin, Blood 4.7 g/dL (2.2-4.0); Magnesium, Blood 2.3 mg/dL (1.6-2.4); Phosphorus, Blood 5.1 mg/dL (2.5-4.9); Potassium, Blood 4.1 mmol/L (3.5-5.5); Total Protein, Blood 6.4 g/dL (6.4-8.2)
--- NOTE | 2021-10-23 06:26 | NUR ---
PATIENT SLEPT ABOUT NINE HOURS LAST NIGHT. NO ACUTE CHANGES TO REPORT
--- NOTE | 2021-10-23 10:03 | NUR ---
AM NOTE: PATIENT ALERT AND X3. INTERMITTENT CONFUSION WITH TIME. ABLE TO MOVE ALL EXTREMITIES BUT WEAK AND PAINFUL. PT STATES PAIN COMES AND GOES. MEDICATED THIS AM FOR PAIN PRIOR TO WOUND CARE. LEFT BKA. PATIENT STATES HIS RIGHT LEG "IS BROKEN" AND DOES NOT LIKE IT MOVED. Q2 TURNING PATIENT ALLOWS. LAYING ON LEFT SIDE AND ROTATING FLOATING HIPS. ON 6 L NASAL CANNULA SATING MID-HIGH 90'S AND CPAP WITH 7L BLEED IN WHEN SLEEPING. CONGESTED COUGH, LUNGS SOUNDING SLIGHTLY COARSE. MEDICAL STATUS NO TELE. HR 70-80'S. BP STABLE. DENIES CHEST PAIN/PRESSURE. IVEY CATH IN PLACE DRAINING CLEAR/YELLOW URINE TO GRAVIY. DENIES ABDOMINAL PAIN/NAUSEA. SMALL LIQUID BM THIS AM. WOUND CARE TO SACRAL PRESSURE ULCER AND RIGHT HEEL. DRESSING CHANGED THIS AM DAY SHIFT TO SACRAL WOUND DUE TO BOWEL MOVEMENT. CALL LIGHT IN REACH. PATIENT SITTING UP TO DRINK FLUIDS. WILL CONTINUE TO MONITOR.
--- NOTE | 2021-10-23 15:01 | NUR ---
TRANSFER NOTE: NO ACUTE CHANGES. VITAL STABLE. PATIENT DENIES PAIN UNLESS TURNING. SISTER AT BEDSIDE. ON 4L NASAL CANNULA SATING LOW 90'S. CPAP ON STANDBY WITH 7L BLEED IN. NO BM SINCE THIS AM. FOLWY CATH REMAINS IN PLACE WITH CLEAR/YELLOW OUTPUT. MEDICAL STATUS WITH NO TELE. HR 80'S. ACHS BLOOD SUGARS. Q2 TURNING PATIENT ALLOWS. CLEAR LIQUID DIET. SCD ON RIGHT LEG. 1/2 NS WITH 75 MEQ NA BICARB RUNNING AT 50 ML/HR. ZOSYN INFUSED. USING CALL LIGHT FOR NEEDS. SLEEPING ON AND OFF. TRANSFERRED TO MEDICAL ROOM 324 WITH ALL PERSONAL BELONGINGS, CHART, AND MEDICATIONS. REPORTED OFF TO JOSE ROBINS RN.
[2021-10-23 15:34] LABS: Vancomycin, Random 26.7 ug/mL
[2021-10-23 15:38] LABS: Calcium, Blood 8.3 mg/dL (8.5-10.1); Creatinine, Blood 3.09 mg/dL (0.60-1.20); Potassium, Blood 4.1 mmol/L (3.5-5.5)
--- NOTE | 2021-10-23 19:11 | NUR ---
END OF SHIFT SUMMARY: Assumed care of pt at 1100, pt stable no concerns this shift. Pt resting well in bed. Ambulates well with FWW to BR, steady gait. VSS.
--- NOTE | 2021-10-23 19:15 | NUR ---
PT TRANSFERED FROM PCU AT 1445. Pt admitted to medical floor, awaiting bed at [facility]. Pt AOx3, neuro checks ordered, turns Q2H. Sacral/right heel wound care completed by previous nurse, dressings CDI. VSS, CBGs WNL no SSI needed. No other concerns at this time.
--- NOTE | 2021-10-24 03:37 | NUR ---
SUPERVISOR LENS GENERATING SUMMARY HAS BEEN RESTING QUIETLY WITH OCCASIONAL INTERRUPTIONS. O2 PER NC AT 4L/MIN. RT TO ADDRESS POSSIBLE CPAP AT [facility]. RT IN ROOM AT THIS TIME. REPOSITIONED FOR COMFORT AND SKIN MAINTENANCE, PREFERS TO BE ON LEFT SIDE WITH HOB ELEVATED FOR COMFORT. NEURO CHECKS - DENIED LOSS OF FEELING. IVEY DRAINING. IVF AND MEDS ADMINISTERED PER MD ORDERS - SEE MAR FOR DETAILS. VSS. SCD OF RIGHT LEG. LEFT SIDE IS BKA. O2 SATS 88 - 90% WITH CONT PULSE OX. CALL LIGHT IN REACH. NO S/S ACUTE DISTRESS.
[2021-10-24 05:40] LABS: BASOPHILS ABSOLUTE AUTO 0.05 K/mm3 (0.00-0.23); BASOPHILS PERCENT AUTO 0 % (0-2); EOSINOPHILS PERCENT AUTO 2 % (0-6); Hematocrit 22.5 % (37.0-53.0); Hemoglobin 7.3 g/dL (13.5-17.5); IMMATURE GRAN ABSOLUTE AUTO 0.07 K/mm3 (0.00-0.10); IMMATURE GRAN PERCENT AUTO 1 % (0-1); LYMPHOCYTES PERCENT AUTO 4 % (21-46); MONOCYTES ABSOLUTE AUTO 0.96 K/mm3 (0.16-1.47); MONOCYTES PERCENT AUTO 6 % (4-13); Mean Corpuscular HGB 32.7 pg (26.0-34.0); Mean Corpuscular HGB Conc 32.4 g/dL (31.5-36.5); Mean Corpuscular Volume 101 fL (80-100); Mean Platelet Volume 8.4 fL (9.1-12.4); NEUTROPHILS ABSOLUTE AUTO 13.01 K/mm3 (1.96-9.15); NEUTROPHILS PERCENT AUTO 87 % (41-73); Platelet Count 322 K/mm3 (150-400); RDW Coefficient Variation 13.2 % (11.7-14.2); RDW Standard Deviation 48.8 fL (35.1-46.3); Red Blood Cell Count 2.23 M/mm3 (4.30-5.90); White Blood Cell Count 14.99 K/mm3 (4.00-11.30)
[2021-10-24 06:12] LABS: Albumin, Blood 1.5 g/dL (3.4-5.0); Anion Gap 8 mmol/L (6-16); Blood Urea Nitrogen 69 mg/dL (8-24); Bun/Creatinine Ratio 22.9 (12.0-20.0); CO2, Blood 23 mmol/L (21-32); Chloride, Blood 109 mmol/L (98-108); Creatinine, Blood 3.01 mg/dL (0.60-1.20); Glomerular Filtration Rate 21 (60-); Glucose, Blood 227 mg/dL (70-99); Magnesium, Blood 2.2 mg/dL (1.6-2.4); Phosphorus, Blood 5.4 mg/dL (2.5-4.9); Sodium, Blood 140 mmol/L (136-145); Vancomycin, Random 22.6 ug/mL
[2021-10-24 15:02] LABS: Bun/Creatinine Ratio 20.3 (12.0-20.0); Calcium, Blood 8.3 mg/dL (8.5-10.1); Creatinine, Blood 3.3 mg/dL (0.60-1.20); Potassium, Blood 3.9 mmol/L (3.5-5.5)
--- NOTE | 2021-10-24 16:23 | NUR ---
SHIFT SUMMARY: PT. IS A&OX4; HE WAS VERY DROWSY IN THE MORNING AND HAS NOT BEEN WANTING TO STAY AWAKE. PT. SAYS HE HAS BEEN OVERLY TIRED FOR A FEW DAYS. HE WAS ON A CPAP AT 11 L WHEN COMMING ONTO THE SHIFT. HE MAINTAINS O2 >90% ON [address] BRANDT, THE PT. HAS NO CONTRINDICATIONS SITTING UP IN BED FOR ORAL INTAKE, LONG THE PT. CAN TOLLERATE IT. THE PT. REQUESTS SMALL AMOUNTS OF MOVEMENT TO HELP MAINTAIN HIS PAIN (ROLLING, REPOSITIONING, SITTING THE HEAD OF THE BED UP). THE PT. HAS A COCCYX AND RIGHT HEEL WOUND THAT HE CAME INTO THE ED WITH. BANDAGES ARE INTACT. THE HEEL WOUND IS STILL INTACT. THE COCCYX WOUND HAS BEEN DRAINING AND IS OPEN. MEDICATED THE PT. PER THE EMAR.
--- NOTE | 2021-10-25 03:39 | NUR ---
FLAP MAKER SUMMARY HAS BEEN RSTING QUIETLY WITH OCCASIONAL INTERRUPTIONS - SUCH FOR MEDS, REPOSITIONING, ETC. IVF INFUSING ORDERED. NEURO CHECKS DONE, OTHER THAN VOICED DECREASE IN FEELING OF LEFT ARM, NO NOTED CHANGED FROM 24 HR AGO. O2 PER CPAP. SATS HIGH 80'S TO LOW 90'S. CALL LIGHT IN REACH. UCHE EVANS.
[2021-10-25 05:24] LABS: BASOPHILS ABSOLUTE AUTO 0.04 K/mm3 (0.00-0.23); BASOPHILS PERCENT AUTO 0 % (0-2); EOSINOPHILS ABSOLUTE AUTO 0.14 K/mm3 (0.00-0.68); EOSINOPHILS PERCENT AUTO 1 % (0-6); Hematocrit 24.8 % (37.0-53.0); Hemoglobin 7.7 g/dL (13.5-17.5); IMMATURE GRAN ABSOLUTE AUTO 0.26 K/mm3 (0.00-0.10); IMMATURE GRAN PERCENT AUTO 2 % (0-1); LYMPHOCYTES ABSOLUTE AUTO 0.46 K/mm3 (0.84-5.20); LYMPHOCYTES PERCENT AUTO 3 % (21-46); MONOCYTES ABSOLUTE AUTO 0.88 K/mm3 (0.16-1.47); MONOCYTES PERCENT AUTO 5 % (4-13); Mean Corpuscular HGB 32.2 pg (26.0-34.0); Mean Corpuscular Volume 104 fL (80-100); Mean Platelet Volume 8.5 fL (9.1-12.4); NEUTROPHILS ABSOLUTE AUTO 15.89 K/mm3 (1.96-9.15); NEUTROPHILS PERCENT AUTO 90 % (41-73); Platelet Count 350 K/mm3 (150-400); RDW Coefficient Variation 13.4 % (11.7-14.2); Red Blood Cell Count 2.39 M/mm3 (4.30-5.90); White Blood Cell Count 17.67 K/mm3 (4.00-11.30)
--- NOTE | 2021-10-25 05:27 | NUR ---
COCCYX DRSNG CHANGED - WOUND DEEP AND TUNNELING - SEE DOCUMENTATION FOR DETAILS
[2021-10-25 06:01] LABS: Albumin, Blood 1.6 g/dL (3.4-5.0); Anion Gap 8 mmol/L (6-16); Blood Urea Nitrogen 68 mg/dL (8-24); Bun/Creatinine Ratio 18.4 (12.0-20.0); CO2, Blood 23 mmol/L (21-32); Calcium, Blood 8.3 mg/dL (8.5-10.1); Chloride, Blood 108 mmol/L (98-108); Glomerular Filtration Rate 17 (60-); Glucose, Blood 249 mg/dL (70-99); Magnesium, Blood 2.5 mg/dL (1.6-2.4); Potassium, Blood 4.9 mmol/L (3.5-5.5); Sodium, Blood 139 mmol/L (136-145); Vancomycin, Random 20.3 ug/mL
[2021-10-25 06:08] LABS: Phosphorus, Blood 8.3 mg/dL (2.5-4.9)
[2021-10-25 09:08] LABS: Bicarbonate Venous 19.8 mmol/L (24.0-30.0); PCO2 Venous 59.3 mmHg (38-42); pH Blood Venous 7.19 (7.34-7.37)
[2021-10-25 09:10] LABS: Base Excess Venous -5.7 mmol/L
--- NOTE | 2021-10-25 09:34 | NUR ---
REPORTED VBG TO DR BRANDT PH , PCO2 , HCO3 19.8, RT TO START BIPAP, PATIENT STATUS CHANGED TO PCU. FLUIDS INCREASED TO NS AT 150. PATIENT HAS CONITNUED THROUGH THE AM WITH MINIMAL INTERACTIONS, UNABLE TO STAY AWAKE, ONLY RESPONDS WITH HEAD SHAKES. VSS, BS 190S, CHEST XRAY DONE, REPORTED TO RISK MANAGEMENT INTERN, KERLINE, CALL LIGHT WITH IN REACH
[2021-10-25 09:39] LABS: Creatine Kinase MB 6.9 ng/mL (0.0-3.6); Creatine Kinase MB Index 0.7 (0.0-4.0)
--- NOTE | 2021-10-25 11:16 | NUR ---
0945 REPORTED TO PATIENTS SISTER THE CHANGES AND PATIETN BEING CHANGED TO PCU STATUS, 0950 DR GUADARRAMA ORDERED H3CO AND STAT ABG WITH DIRECTIONS RN TO CALL WITH THE RESULTS NOT THE RT. 1100 REPORT TO SHAWN JACKSON, PATIENT TO ICU 16, RT STILL WORKING TO GET BLOOD FOR THE ABG, TRANSFERRED CARE
[2021-10-25 15:53] LABS: Base Excess Venous -2.3 mmol/L; Bicarbonate Venous 22.5 mmol/L (24.0-30.0); PCO2 Venous 38.6 mmHg (38-42); PO2 Venous 47.3 mmHg (38-42); pH Blood Venous 7.38 (7.34-7.37)
--- NOTE | 2021-10-25 18:47 | NUR ---
PT TRANSFERRED TO ICU AT 1100. AT TIME OF ARRIVAL, PT WAS DROWSY BUT ORIENTEDX4. HE REMAINED ON BIPAP THROUGHOUT THE DAY. HE IS MORE ALERT NOW AND WAS ABLE TO EAT DINNER THIS EVENING. BIPAP W 6L O2, 18/12. WOUND ON BUTTOCKS CLEANED AND DRESSED X2 TODAY. TURNS Q2. 24HR URINE STARTED TODAY. NO OTHER SIGNIFICANT EVENTS
--- NOTE | 2021-10-25 19:30 | NUR ---
PT REPORT RECEIVED, SAFETY CHECK COMPLETED, ASSUMED PT CARE. PT ALERT TO VERBAL SIMULUS AND IS ORIENTED X4 AND NEURO STATUS IS UNCHANGED FOM REPORTED STATUS ON PREVIOUS SHIFT PER OFF GOING RN. PT IS LYING IN BED ON BiPAP AND ENDORSES BACK PAIN, BUT DENIES OTHER COMPLAINT AT THIS TIME.
[2021-10-26 03:41] LABS: Hematocrit 20.7 % (37.0-53.0); Hemoglobin 6.8 g/dL (13.5-17.5)
[2021-10-26 04:09] LABS: Albumin, Blood 1.5 g/dL (3.4-5.0); Anion Gap 7 mmol/L (6-16); Blood Urea Nitrogen 74 mg/dL (8-24); Bun/Creatinine Ratio 19.1 (12.0-20.0); CO2, Blood 28 mmol/L (21-32); Calcium, Blood 7.7 mg/dL (8.5-10.1); Chloride, Blood 106 mmol/L (98-108); Creatinine, Blood 3.88 mg/dL (0.60-1.20); Glomerular Filtration Rate 16 (60-); Glucose, Blood 175 mg/dL (70-99); Magnesium, Blood 2.2 mg/dL (1.6-2.4); Phosphorus, Blood 6.3 mg/dL (2.5-4.9); Potassium, Blood 3.8 mmol/L (3.5-5.5); Sodium, Blood 141 mmol/L (136-145)
--- NOTE | 2021-10-26 06:07 | NUR ---
SHIFT SUMMERY: PT ON BIPAP THROUGHOUT THE NIGHT BUT ABLE TO TOLLERATE BEING OFF FOR MEDICATIONS, WHICH HE TOLLERATED WELL. TOWARDS THE LATTER PART OF THE SHIFT THE PT WAS NOTED TO BE MORE DROWSY. PT'S URINE OUT PUT WAS ALSO NOTED TO BE LOW AT ABOUT 15-20/HR. AT 0515, THE PT'S SPO2 BEGAN ALRMING AND THE O2 BLEED IN WAS INCREASED TO 15LPM BY RT AND BIPAP PRESSURES INCREASED TO 20/14. DR. MILLER WAS NOTIFIED OF THESE CHANGES AND ORDERED COAGULATION STUDIES AND A CXR IN PREPERATION FOR POSSIBLE THORACENTESIS LATER ON TODAY. PT IS ABLE TO ANSER QUESTIONS DESPITE BEING DROWSY. WILL CONTINUE TO MONITOR.
[2021-10-26 07:01] LABS: International Normalized Ratio 2.88; Prothrombin Time Results 28.2 Sec (9.7-11.5)
[2021-10-26 10:05] LABS: BASOPHILS ABSOLUTE AUTO 0.04 K/mm3 (0.00-0.23); BASOPHILS PERCENT AUTO 0 % (0-2); EOSINOPHILS PERCENT AUTO 2 % (0-6); Hematocrit 20.8 % (37.0-53.0); IMMATURE GRAN ABSOLUTE AUTO 0.15 K/mm3 (0.00-0.10); IMMATURE GRAN PERCENT AUTO 1 % (0-1); LYMPHOCYTES ABSOLUTE AUTO 0.76 K/mm3 (0.84-5.20); LYMPHOCYTES PERCENT AUTO 4 % (21-46); MONOCYTES ABSOLUTE AUTO 0.91 K/mm3 (0.16-1.47); MONOCYTES PERCENT AUTO 5 % (4-13); Mean Corpuscular HGB 33.2 pg (26.0-34.0); Mean Corpuscular HGB Conc 33.7 g/dL (31.5-36.5); Mean Platelet Volume 8.5 fL (9.1-12.4); NEUTROPHILS ABSOLUTE AUTO 16.48 K/mm3 (1.96-9.15); NEUTROPHILS PERCENT AUTO 88 % (41-73); Platelet Count 382 K/mm3 (150-400); RDW Coefficient Variation 13.4 % (11.7-14.2); RDW Standard Deviation 47.8 fL (35.1-46.3); Red Blood Cell Count 2.11 M/mm3 (4.30-5.90); White Blood Cell Count 18.64 K/mm3 (4.00-11.30)
[2021-10-26 10:11] LABS: Mean Corpuscular Volume 99 fL (80-100)
--- NOTE | 2021-10-26 10:58 | NUR ---
CALL PLACED TO ADELA KELLY TO FOLLOW UP ON PT TRANSFER. AEROSPACE STRESS ENGINEER STATES SHE DOES NOT FORSEE PT RECEIVING A BED IN THE NEXT 24-48 HOURS.
[2021-10-26 12:36] LABS: Protein, Urine Quantitative 245.2 mg/dL (0.0-11.9)
--- NOTE | 2021-10-26 13:43 | NUR ---
PT TRANSFERRED TO PCU RM 19 AROUND 1300. ALL BELONGINGS TRANSFERRED WITH PATIENT. PT ALERT AT TIME OF TRANSFER.
--- NOTE | 2021-10-26 18:25 | NUR ---
PT TRANSFERRED FROM ICU APPROX 1240 REPORT RECEIVED FROM KRISTY JACKSON. PT AWAITING TO TRANSPORT TO [facility] AWAITING FOR ROOM. VITALS HRR SR 70'S BP SYSTOLIC 120'S, SATS ABOVE 90% ON 8L OF 02 WHEN AWAKE, BIPAP WITH 8L 02 BLEED PRN WHICH PT MOSTLY ON BIPAP SINCE TRANSFER, AFEBRILE. PT WAS GIVEN IV DILAUDID FOR PAIN, COCCYX DRESSING CHANGED. PT RUNNING ON NA BICARB AT 50/HR, IVEY DRAINING VIA GRAVITY, OLIGURIA PER REPORT, PICC LINE WAS PLACED ON KAHLIL BY MIRELLA JACKSON FOR CPN INFUSION. FAMILY AT BEDSIDE WAS GIVEN UPDATE REGARDING PT TRANSFER STATUS, BY THE END OF THE SHIFT PT FINALLY GOT A BED RM 4430 TRANSPORT TO ARRIVE AT APPROX 1845. WILL GIVE REPORT TO MALKA JACKSON, CPN STARTED AND INFUSING AT THIS TIME. ALL BELONGINGS PACKED AND READY AWAITING FOR TRANSPORT
[2021-10-28 14:12] LABS: IMMUNOGLOBULIN A, QN, SERUM 378 mg/dL (61-437); IMMUNOGLOBULIN G, QN, SERUM 1049 mg/dL (603-1613); IMMUNOGLOBULIN M, QN, SERUM 86 mg/dL (20-172)
[2021-10-31 09:11] LABS: ANTIGLOMERULAR BM AB 3 units (0-20)
[2021-10-31 12:11] LABS: M-SPIKE, % Not Observed % (Not Observed); PROTEIN,TOTAL,URINE 196.2 mg/dL (Not Estab.)
[2021-10-31 13:11] LABS: ANA DIRECT Negative (Negative); ANTIMYELOPEROXIDASE (MPO) ABS <9.0 U/mL (0.0-9.0); ANTIPROTEINASE 3 (PR-3) ABS <3.5 U/mL (0.0-3.5); ATYPICAL PANCA <1:20 titer (Neg:<1:20); CYTOPLASMIC (C-ANCA) <1:20 titer (Neg:<1:20); PERINUCLEAR (P-ANCA) <1:20 titer (Neg:<1:20)
== END 2021-10-26 20:22 | disposition short-term general hospital (02) | DRG 551 ==
LOC: ER 11:29 → MEDS 19:11 → PCU 10-21 16:15 → MEDS 10-23 15:04 → ICUW 10-25 10:26 → PCU 10-26 13:01
PROVIDERS: Emergency Medicine; Family Medicine; Hospitalist; Internal Medicine; Internal Medicine Nephrology; ADMIT Internal Medicine
PROC: 30233N1 Transfusion of Nonautologous Red Blood Cells into Peripheral Vein, Percutaneous Approach (ICD-10-PCS; principal; 2021-10-18)
DX: S22.089A Unspecified fracture of T11-T12 vertebra, initial encounter for closed fracture (principal); L89.153 Pressure ulcer of sacral region, stage 3; J69.0 Pneumonitis due to inhalation of food and vomit; J96.91 Respiratory failure, unspecified with hypoxia; N17.9 Acute kidney failure, unspecified; N18.4 Chronic kidney disease, stage 4 (severe); K50.90 Crohn's disease, unspecified, without complications; Z68.41 Body mass index [BMI] 40.0-44.9, adult; K92.1 Melena; E87.2 Acidosis; Z20.822 Contact with and (suspected) exposure to COVID-19; W18.30XA Fall on same level, unspecified, initial encounter; Z89.512 Acquired absence of left leg below knee; Z85.828 Personal history of other malignant neoplasm of skin; R62.7 Adult failure to thrive; I12.9 Hypertensive chronic kidney disease with stage 1 through stage 4 chronic kidney disease, or unspecified chronic kidney disease; Z98.890 Other specified postprocedural states; E11.22 Type 2 diabetes mellitus with diabetic chronic kidney disease; E78.00 Pure hypercholesterolemia, unspecified; Z79.01 Long term (current) use of anticoagulants; D50.9 Iron deficiency anemia, unspecified; Z79.4 Long term (current) use of insulin; Z79.899 Other long term (current) drug therapy; R79.89 Other specified abnormal findings of blood chemistry; G47.33 Obstructive sleep apnea (adult) (pediatric); M51.36 Other intervertebral disc degeneration, lumbar region; Z79.82 Long term (current) use of aspirin; Z85.038 Personal history of other malignant neoplasm of large intestine; E83.39 Other disorders of phosphorus metabolism
CPT/HCPCS: 0241U; 36415; 36430; 36569; 51702; 70450; 71045; 71250; 72125; 72128; 72131; 76770; 80048; 80053; 80069; 80076; 80202; 81001; 82330; 82550; 82553; 82803; 82947; 83036; 83516; 83520; 83605; 83735; 84100; 84156; 84166; 84550; 85014; 85018; 85025; 85027; 85610; 86037; 86038; 86334; 86335; 86850; 86900; 86901; 86923; 87040; 87070; 87075; 87205; 92526; 92610; 93005; 93010; 94660; 94664; 94760; 94762; 96365; 96366; 96367; 96372; 96375; 96376; 99285-25; A9270; C1751; G0378; J0696; J0881; J1170; J1815; J2060; J2543; J3010; J3370; J3430; J7030; J7040; J7050; J7060; J7070; P9016; P9059